=== PATIENT | male | born 1950 | race Caucasian/White ===

== ENCOUNTER 2024-07-20 17:47 | Emergency (ER) | payer MEDICARE, SELFPAY ==
--- NOTE | ~2024-07-20 | US_ITS ---
EXAMINATION: US VENOUS LEFT LOWER EXTREMITY CLINICAL INFORMATION: Pain and swelling COMPARISON: None. TECHNIQUE: Doppler spectral analysis and color flow Doppler imaging was performed of the left lower extremity. Compression and augmentation maneuvers were performed. FINDINGS: The left common femoral, femoral, popliteal and calf veins were well-identified and normal. They demonstrate normal compressibility and color fill-in. There is a 6 cm length of nonocclusive thrombus which appears chronic in the left proximal great saphenous vein. US/US venous duplex LE LT IMPRESSION: 1. No evidence for left lower extremity deep vein thrombosis. 2. Chronic appearing nonocclusive thrombus in the left great saphenous vein. Electronically signed by: Israel Gordillo MD 07/20/2024 08:18 PM TRINID[facility] CASON
[2024-07-20 17:54] VITALS: BP 154/68; PULSE 73; RESP 20; TEMP 36.6; O2SAT 99; BMI 22.0
--- NOTE | 2024-07-20 17:55 | ED.GENADULT ---
HPI - General Adult General Chief complaint: Extremity Problem Stated complaint: L leg pain, numbness, tingling Time Seen by Provider: 07/20/24 20:44 Source: patient and family Mode of arrival: ambulatory Limitations: no limitations History of Present Illness ED Provider: HPI narrative: Patient came from [place] drove about 14 hours on Thanksgiving family noted swelling of the left ankle no pain in the calf area patient does have peripheral vascular disease on platal and aspirin and followed by vascular surgeon no shortness a breath no other significant complaints Related Data Allergies Allergy/AdvReac Type Severity Reaction Status Date / Time tramadol AdvReac Vomiting Verified 07/20/24 17:59 Review of Systems Review of Systems: Yes all other systems are reviewed and are negative PMFSH Social History Social History Advance Directives: No Advance Directives Information Provided: Yes Physical Exam ED Vital Signs: Vital Signs - 24 hr 07/20/24 17:54 07/20/24 20:43 07/20/24 21:43 Temperature 98 F 97.6 F 97.6 F Pulse Rate 73 66 66 Respiratory Rate 20 16 16 Blood Pressure 154/68 H 160/85 H 160/85 H Pulse Oximetry 99 96 96 Oxygen Delivery Method Room Air Room Air Room Air BMI result Body Mass Index 22.0 Appearance: Alert. Oriented X3. No acute distress. Thin beats Eyes: No pallor or icterus ENT: Pharynx normal. Oral Mucosa moist Neck: Normal inspection. Neck supple. CVS: Normal heart rate and rhythm. Pulses normal. Respiratory: No respiratory distress. Equal air entry bilateral, no wheezing/rales/rhonchi Abdomen: Soft and nontender. Bowel sounds are present, no mass palpable, no CVA tenderness Skin: Skin warm and dry. Normal skin color. Normal skin turgor. Extremities: Trace ankle edema bilaterally No calf tenderness, Homans sign negative Neuro: Oriented X 3. No motor deficit. No sensory deficit.No cerebellar signs , cranial nerves II-XII intact Course Course Course Narrative: RME performed by Lorene Zendejas PA-C. Patient is a 74 year old assigned male at presenting to the emergency department with left lower leg swelling / pain. Patient states that he was being driven from one of the [facility] to [facility] and is now having left lower leg pain and swelling. Patient states that he is concerned for a blood clot. Detailed physical exam and review of systems are deferred to the district manager primary care sales. Imaging ordered. Patient placed back in the waiting room pending room availability and results. 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 Radiologist Impression: [address] [address] Ultrasound Report Signed Patient: Nash Lewis MR#: [id number] : 1950 Acct:[id number] Age/Sex: 74 / M ADM Date: 07/20/24 Loc: HO.ED Attending Dr: Ordering Physician: Lorene Zendejas Date of Service: 07/20/24 Procedure(s): US venous duplex LE LT Accession Number(s): [id number] cc: Lorene Zendejas~ EXAMINATION: US VENOUS LEFT LOWER EXTREMITY CLINICAL INFORMATION: Pain and swelling COMPARISON: None. TECHNIQUE: Doppler spectral analysis and color flow Doppler imaging was performed of the left lower extremity. Compression and augmentation maneuvers were performed. FINDINGS: The left common femoral, femoral, popliteal and calf veins were well-identified and normal. They demonstrate normal compressibility and color fill-in. There is a 6 cm length of nonocclusive thrombus which appears chronic in the left proximal great saphenous vein. US/US venous duplex LE LT IMPRESSION: 1. No evidence for left lower extremity deep vein thrombosis. 2. Chronic appearing nonocclusive thrombus in the left great saphenous vein. Electronically signed by: Israel Gordillo MD 07/20/2024 08:18 PM EST Discharge Plan Discharge Clinical Impression: Ankle edema Patient Disposition: Home, Self-Care Instructions: Edema (ED) Additional Instructions: Mantenga las piernas elevadas No se observ? angel?n co?gulo de prudence becca en la pierna mari. Hab?a un co?gulo de prudence antiguo en el ?duong de la leeanna guerra. Consulte con trujillo cirujano vascular. Interventions: ED Discharge Assessment Last Done: 07/20/24 21:43 Discharge Date/Time: 07/20/24 21:44 Print Language: Tanzanian
[2024-07-20 20:43] VITALS: BP 160/85; PULSE 66; RESP 16; TEMP 36.4; O2SAT 96
[2024-07-20 21:43] VITALS: BP 160/85; PULSE 66; RESP 16; TEMP 36.4; O2SAT 96
== END 2024-07-20 21:44 | disposition home or self-care (01) ==
PROVIDERS: Emergency Provider Internal Medicine
DX: R60.0 Localized edema (principal); M79.605 Pain in left leg; R20.0 Anesthesia of skin
CPT/HCPCS: 93971; 99283; 99284